=== PATIENT | male | born 1980 ===

== ENCOUNTER 2022-09-30 12:47 | Emergency (ER) | payer OTHER, SELFPAY ==
[2022-09-30 12:53] VITALS: BP 136/90; PULSE 89; RESP 15; TEMP 36.5; O2SAT 96; BMI 34.0
--- NOTE | 2022-09-30 12:57 | DI.RAD.S_ITS ---
PROCEDURE: XR FINGER LT MIN 2V INDICATIONS: Crush injury TECHNIQUE: AP hand, 2 views of the left 2nd finger(s) acquired. COMPARISON: None. FINDINGS: Bones: No fractures or dislocations. No suspicious bony lesions. Soft tissues: No suspicious soft tissue calcifications. IMPRESSION: No fracture. No osseous lesion. If symptoms and/or clinical suspicion for pathology persists, further assessment with repeat radiographs (7-10 days) or advanced imaging (e.g. CT, MRI or bone scan) should be considered. Dictated by: Aparna Fischer MD, PhD on 09/30/2022 at 13:22 Approved by: Aparna Fischer MD, PhD on 09/30/2022 at 13:23
[2022-09-30] MEDS: TET,DIPH,PERTUSS(ACELL),VAC/PF 0.5 ML SYRINGE IM (13:05)
--- NOTE | 2022-09-30 16:46 | ED_ITS ---
HPI - Extremity Injury (Upper) <Rachelle Medina PA-C - Last Filed: 09/30/22 17:05> General Chief Complaint: Extremity Injury, Upper Stated Complaint: smashed L index finger about noon Time Seen by Provider: 09/30/22 12:56 Source: patient Mode of arrival: Ambulatory History of Present Illness HPI narrative: 42-year-old male presents to the ED status post a left index finger crush injury sustained just prior to arrival. Patient states that he was moving some metal grades looking for missing to, was sliding the grades down and got his left index finger crushed between 2 of the grades. Patient denies numbness, tin gling, weakness. Patient endorses full movement of the finger. Patient's last tetanus unknown Related Data Allergies Allergy/AdvReac Type Severity Reaction Status Date / Time No Known Drug Allergies Allergy Verified 09/30/22 12:57 Review of Systems <Rachelle Medina PA-C - Last Filed: 09/30/22 17:05> Review of Systems ROS Unobtainable: All systems reviewed & are unremarkable except as noted in HPI and below Constitutional Constitutional: Denies chills, Denies fatigue, Denies fever(s), Denies frequent falls, Denies lethargy and Denies weakness Eyes Eyes: Denies change in vision, Denies eye discharge, Denies irritation and Denies loss of vision ENT Ears, Nose, Mouth, and Throat: Denies change in voice, Denies dizziness, Denies neck pain, Denies sore throat and Denies throat swelling Cardiovascular Cardiovascular: Denies chest pain, Denies irregular heart rhythm, Denies lightheadedness, Denies palpitations, Denies dyspnea, Denies dyspnea on exertion and Denies orthopnea Respiratory Respiratory: Denies cough, Denies dyspnea, Denies dyspnea on exertion and Denies wheezing Gastrointestinal Gastrointestinal: Denies abdominal pain, Denies change in bowel habits, Denies diarrhea, Denies nausea and Denies vomiting Genitourinary Genitourinary: Denies hematuria, Denies flank pain, Denies urinary incontinence and Denies urinary urgency Musculoskeletal Musculoskeletal: Denies back pain, Denies muscle weakness, Denies neck pain, Denies numbness and Denies tingling Comments: Left index finger pain. Integumentary/Breasts Skin/Breast: Denies pruritus, Denies erythema, Denies rash and Denies wounds Neurologic Neurologic: Denies behavioral changes, Denies confusion, Denies dizziness, Denies frequent falls, Denies loss of vision, Denies numbness, Denies tingling and Denies weakness Psychiatric Psychiatric: Denies anxiety, Denies behavioral changes, Denies confusion, Denies depression, Denies homicidal ideation and Denies suicidal ideation Endocrine Endocrine: Denies fatigue, Denies flushing and Denies palpitations Hematologic/Lymphatic Hematologic/Lymphatic: Denies easy bruising Allergic/Immunologic Allergic/Immunologic: Denies urticaria, Denies throat swelling and Denies wheezing Patient History <Rachelle Medina PA-C - Last Filed: 09/30/22 17:05> Social History Smoking Status: Current every day smoker Smoking Status: Current every day smoker tobacco type: vaping alcohol intake frequency: holidays/special occasions only Substance Use Type: does not use Exam <Rachelle Medina PA-C - Last Filed: 09/30/22 17:05> Narrative Exam Narrative: Const General:?cooperative, healthy appearing and comfortable [facility] [place] Head:?normal to inspection Ears:?hearing grossly normal bilaterally Nose:?external nose normal Face and sinus:?normal facial exam and sinuses nontender Mouth:?oral mucosae normal Throat:?posterior oropharynx normal Eyes General:?appearance normal, both eyes and all related structures Neck Neck:?normal visual inspection and no lymphadenopathy noted Resp Effort & Inspection:?normal respiratory effort Auscultation:?clear to auscultation bilaterally Cardio Rate:?regular rate Rhythm:?regular rhythm Musculoskeletal Left index finger with a puncture injury to the dorsal aspect of the intermediate phalange. There is full range of motion. Strength and sensation is intact. Patient is neurovascularly intact. There is no bleeding from the puncture wound. Neuro General:?patient alert, patient awake and patient oriented x3 Initial Vital Signs Initial Vital Signs: Vital Signs Temperature 97.7 F 09/30/22 12:53 Pulse Rate 89 09/30/22 12:53 Respiratory Rate 15 09/30/22 12:53 Blood Pressure 136/90 09/30/22 12:53 Pulse Oximetry 96 09/30/22 12:53 Oxygen Delivery Method 09/30/22 12:53 <Ismael Mark MD - Last Filed: 10/01/22 22:15> Initial Vital Signs Initial Vital Signs: Vital Signs Temperature 97.7 F 09/30/22 12:53 Pulse Rate 89 09/30/22 12:53 Respiratory Rate 15 09/30/22 12:53 Blood Pressure 136/90 09/30/22 12:53 Pulse Oximetry 96 09/30/22 12:53 Oxygen Delivery Method 09/30/22 12:53 Course <Rachelle Medina PA-C - Last Filed: 09/30/22 17:05> Orders Ordered: Discontinued Medications Diphtheria/Tetanus/Acell Pertussis (Tet,Diph,Pertuss(Acell),Vac/Pf 0.5 Ml Syringe) 0.5 ml IM .ONCE ONE Stop: 09/30/22 12:59 Last Admin: 09/30/22 13:05 Dose: 0.5 ml Documented By: RL Vital Signs Vital signs: Vital Signs - 8 hr 09/30/22 12:53 Temperature 97.7 F Pulse Rate 89 Respiratory Rate 15 Blood Pressure 136/90 Pulse Oximetry 96 Oxygen Delivery Method Room Air <Ismael Mark MD - Last Filed: 10/01/22 22:15> Orders Ordered: Discontinued Medications Diphtheria/Tetanus/Acell Pertussis (Tet,Diph,Pertuss(Acell),Vac/Pf 0.5 Ml Syringe) 0.5 ml IM .ONCE ONE Stop: 09/30/22 12:59 Last Admin: 09/30/22 13:05 Dose: 0.5 ml Documented By: RL Vital Signs Vital signs: Vital Signs - 8 hr 09/30/22 12:53 Temperature 97.7 F Pulse Rate 89 Respiratory Rate 15 Blood Pressure 136/90 Pulse Oximetry 96 Oxygen Delivery Method Room Air MDM - Extremity Injury (Upper) <Rachelle Medina PA-C - Last Filed: 09/30/22 17:05> Lab Data Labs: Urine Dip Bedside Urine Glucose 250 mg/dl Bedside Urine Bilirubin - Negative Bedside Urine Ketone - Negative Urine Specific [place] 1.030 Bedside Urine Occult Blood - Negative Bedside Urine pH 6.0 Bedside Urine Protein - Negative Bedside Urine Urobilinogen - Negative Bedside Urine Nitrite - Negative Bedside Urine Leukocytes - Negative Esterase MDM Narrative Medical decision making narrative: 42-year-old male presents to the ED status post a left index finger crush injury sustained just prior to arrival. Concern for fracture/dislocation versus musculoskeletal sprain/strain. X-ray was obtained with no acute findings. Patient's tetanus was updated. Recommend Supportive care with ibuprofen/Tylenol. ED return precautions discussed with patient. Patient verbalized understanding. <Ismael Mark MD - Last Filed: 10/01/22 22:15> Medical Records Medical records narrative: I was immediately available in the department for consultation. Documentation has been reviewed. I agree with assessment and plan. Lab Data Labs: Urine Dip Bedside Urine Glucose 250 mg/dl Bedside Urine Bilirubin - Negative Bedside Urine Ketone - Negative Urine Specific [place] 1.030 Bedside Urine Occult Blood - Negative Bedside Urine pH 6.0 Bedside Urine Protein - Negative Bedside Urine Urobilinogen - Negative Bedside Urine Nitrite - Negative Bedside Urine Leukocytes - Negative Esterase Discharge Plan Departure Patient Disposition: Home Clinical Impression: Finger injury Instructions: DI for Finger Sprain Activity Restrictions/Additional Instructions: You were evaluated in the ED today for a finger injury. Your x-ray did not show any dislocations or fractures. Your tetanus was updated today. You may take Tylenol/ibuprofen for your symptoms. Return to the ED if you experience any numbness, tingling, weakness. Stand Alone Forms: Patient Portal/API
== END 2022-09-30 14:35 | disposition home or self-care (01) ==
PROVIDERS: Emergency Provider Student in an Organized Health Care Education/Training Program
DX: S67.191A Crushing injury of left index finger, initial encounter (principal); W23.0XXA Caught, crushed, jammed, or pinched between moving objects, initial encounter; Z23 Encounter for immunization; Y99.0 Civilian activity done for income or pay
CPT/HCPCS: 73140; 81003; 90471; 99283; 90715